=== PATIENT | male | born 1990 | race Caucasian/White ===

== ENCOUNTER 2018-09-19 11:37 | Inpatient (IN) ==
[2018-09-19] MEDS ORDERED: 0.9 % Sodium Chloride 1,000 ML IVC ONE (12:03)
[2018-09-19] MEDS ORDERED: Isovue-370 500 ML BOTTLE IVP ONE (12:04)
[2018-09-19 12:34] LABS: Basophils # 0.1 K/mcL (0.0-0.2); Basophils % 1.1 %; Eosinophils # 0.3 K/mcL (0.0-0.6); Eosinophils % 5.4 %; Hematocrit 43.1 % (37.5-50.1); Hemoglobin 14.2 g/dL (12.9-16.9); Lymphocytes # 2.6 K/mcL (0.6-4.6); Lymphocytes % 48.6 %; Mean Corpuscular HGB Conc 32.9 g/dL (31.6-35.5); Mean Corpuscular Hemoglobin 30.2 pg (28.0-33.3); Mean Corpuscular Volume 91.7 fL (83.0-100.0); Mean Platelet Volume 10.6 fL (9.4-12.4); Monocytes # 0.4 K/mcL (0.0-1.3); Monocytes % 8.2 %; Platelet Count 192 K/mcL (140-400); Segmented Neutrophils % 36.7 %
[2018-09-19 12:45] LABS: INR 1.2
[2018-09-19 12:48] LABS: Activated Partial Thrombo Time 34.5 Seconds (26.0-36.0)
[2018-09-19 12:57] LABS: Alanine Aminotransferase 5 Units/L (7-52); Albumin 3.4 g/dL (3.5-5.7); Albumin/Globulin Ratio 2.4 (1.1-2.2); Alkaline Phosphatase 40 Units/L (34-104); Aspartate Amino Transferase 10 Units/L (13-39); BUN/Creatinine Ratio 14 (6-26); Bilirubin,Total 0.5 mg/dL (0.3-1.0); Blood Urea Nitrogen 9 mg/dL (6-20); Calcium 6.4 mg/dL (8.6-10.3); Carbon Dioxide 21 mEq/L (23-29); Chloride 115 mEq/L (98-107); Globulin 1.4 g/dL (2.4-3.5); Glucose 79 mg/dL (70-105); Magnesium 1.4 mg/dL (1.6-2.6); Osmolality,Calculated 292 (280-300); Potassium 2.6 mEq/L (3.5-5.1); Sodium 142 mEq/L (136-145); Total Protein 4.8 g/dL (6.4-8.9); eGFR For Non-African Americans > 60 (> 60)
[2018-09-19 13:29] LABS: Bilirubin,Urine Negative (Negative); Blood,Urine Negative (Negative); Clarity,Urine Clear (Clear); Color,Urine Yellow (Yellow); Glucose,Urine (UA) Normal (Normal); Ketones,Urine Negative (Negative); Leukocyte Esterase,Urine Negative (Negative); Nitrite,Urine Negative (Negative); Protein,Urine Negative (Neg-Trace); Specific Gravity,Urine 1.016 (1.010-1.025); Urobilinogen,Urine Normal (Normal)
--- NOTE | 2018-09-19 15:22 | Internal Med History&Physical ---
<Kwadwo Escalante S - Last Filed: 09/19/18 16:47> Date of Encounter: 09/19/18 Time of Encounter: 16:07 Internal Medicine - H&P: HPI Chief complaint: blood in my stool Admitted From: Home Plans for Post Hospital Care: Home History of present illness: Mr. De La Paz is a 28 year old male with no significant PMH presents today because of about a 1yr hx of blood in his stool. He usually has blood when he wipes and states that last night he had a "flow of blood" and had significant abdominal pain. He states the pain is cramping and can be sharp in the LLQ/RLQ without radiation. He states that he has no association with food and that he constantly eats, although he does note a 10-15lb weight loss in the last few months. He states that he doesn't have a hx of hemrroids nor does he know if he has a personal hx of UC or chron's. He denies any recent travel outside the country. He did eat some random mushrooms that he found a few days ago. Aside from that, the pt denies any recent changes in his life. He does have a paternal uncle with a hx of UC, although he doesn't know much of the rest of his family history. In the ER he was found to have multiple electrolyte abnormalities. Potassium at 2.6, which was replaced both IV and PO. He was found to have both low calcium and low magnesium, both of which were replaced IV. The patient had a CT scan showing ild prominence of the descending colonic wall which is favored to be due to underdistention though component of mild wall thickening/low-grade colitis not excluded given clinical history. I spoke to GI on the phone and they asked for him to be made NPO at midnight. The pt will be admitted for further workup of potential causes of colitis, including both infectious and inflammatory. Past Med Surg Social Fam HX - Past Medical History Medical history: non-contributory Additional medical history: heart murmur Psychiatric history: no psych history - Past Surgical History Surgical History: non-contributory Additional surgical history: tonsillectomy. wisdom teeth. full teeth extraction - Social History Smoking Status: Current every day smoker Smokeless Tobacco Status: No Alcohol use: occasionally Drug use: none Internal Medicine - H&P: Meds Ibuprofen [Motrin] 600 mg PO Q6HR PRN #20 tab 09/18/17 [Rx] Allergy/AdvReac Type Severity Reaction Status Date / Time aspirin [ASA] Allergy Anaphylaxis Verified 09/18/17 16:02 Bee Pollen Allergy Anaphylaxis Verified 09/18/17 16:02 All Systems PM: A 10-system review of systems was performed and is negative for pertinent findings except as documented above in the HPI. - Constitutional Constitutional: weight loss, no chills, no fever(s) - EENT Eyes: no change in vision Nose, mouth and throat: no bleeding gums - Cardiovascular Cardiovascular ROS IM: no chest pain, no dyspnea, no dyspnea on exertion, no orthopnea, no palpitations - Respiratory Respiratory: no cough, no dyspnea, no hemoptysis, no excessive phlegm production - Gastrointestinal Gastrointestinal: abdominal pain, bloating, change in bowel habits, change in stool character, hematochezia, loose stools, nausea - Genitourinary Genitourinary ROS male: no hematuria - Musculoskeletal Musculoskeletal ROS IM: no arthralgias, no back pain - Integumentary Integumentary IM: no rash, no unusual bruising - Neurological Neurological ROS: no weakness - Psychiatric Psychiatric: anxiety - Endocrine Endocrine IM: fatigue - Hematologic/Lymphatic Hematologic/Lymphatic: no easy bleeding, no easy bruising - Constitutional Vitals: Temp Pulse Resp BP Pulse Ox 98.2 F 77 16 125/90 100 09/19/18 12:30 09/19/18 13:54 09/19/18 12:58 09/19/18 13:54 09/19/18 13:54 General appearance: Present: A&O X 3, underweight Exam: general - aox3, thin appearing male, in NAD heent - NCAT, MMM cardio - rrr, s1s2, cta, no mrg lungs - ctab, not in resp distress, no wheeze/rhonchi/rales abd - ttp with voluntary guarding, no rebound or masses, no peritoneal signs extremities - strength 5/5 UE/LE, moves all extremities equally skin - intact, warm, dry, normal turgor neuro - no FND psych - anxious appearing Internal Med - H&P Results - Labs CBC & Chem 7: 09/19/18 12:14 09/19/18 12:14 Labs: Short CBC 09/19/18 Range/Units 12:14 WBC 5.4 (4.3-11.1) K/mcL Hgb 14.2 (12.9-16.9) g/dL Hct 43.1 (37.5-50.1) % Plt Count 192 (140-400) K/mcL Neutrophils # 2.0 (1.6-8.9) K/mcL BMP 09/19/18 12:14 Sodium 142 Potassium 2.6 L Chloride 115 H Carbon Dioxide 21 L BUN 9 Creatinine 0.64 L Glucose 79 Calcium 6.4 L Liver Function 09/19/18 Range/Units 12:14 Total Bilirubin 0.5 (0.3-1.0) mg/dL AST 10 L (13-39) Units/L ALT 5 L (7-52) Units/L Alkaline Phosphatase 40 (34-104) Units/L Albumin 3.4 L (3.5-5.7) g/dL Urine 09/19/18 Range/Units 12:52 Urine Color Yellow (Yellow) Urine Clarity Clear (Clear) Urine pH 6.0 (5.0-8.0) pH Units Ur Specific [place] 1.016 (1.010-1.025) Urine Protein Negative (Neg-Trace) mg/dL Urine Glucose (UA) Normal (Normal) mg/dL - Impressions ITS Impressions Abdomen/Pelvis CT 09/19/18 12:04 IMPRESSION: 1. Mild prominence of the descending colonic wall which is favored to be due to underdistention though component of mild wall thickening/low-grade colitis not excluded given clinical history. 2. Mild periportal and trace pericholecystic edema which is nonspecific and may relate to hydration status or be reactive in nature. D/ / Kevyn Felder MD / Kevyn Felder MD Interpreting Provider: Kevyn Felder MD - Assessment and Plan (1) Colitis Current Visit: Yes Status: Acute Assessment and plan: Pt with 6 mos hx of bloody diarrhea, cramping abdominal pain - 10-15 lbs weight loss - family hx of IBD CT on admission showed: - Mild prominence of the descending colonic wall which is favored to be due to underdistention though component of mild wall thickening/low-grade colitis not excluded given clinical history. Mild periportal and trace pericholecystic edema which is nonspecific and may relate to hydration status or be reactive in nature. Pt has history suspicious for IBD, with family hx of UC in the maternal uncle - likely infectious vs inflammatory colitis - FOBT (-) Plan: - 100cc/hr 0.9% NS - GI consulted, to see in AM asked for him to be made NPO at midnight CLD (no reds) until midnight will hold off on starting steroids for suspected colitis flare until GI evaluates - tylonal prn pain q6hr - continue to monitor electrolytes as detailed below - CBC, BMP with AM labs; H&H at 2100 - stool panel pending - FEN: NPO at midnight, ok to have CLD until 1200 nutrition consulted as detailed below - dispo: GI workup, likely to d/c home after inpatient evaluation (2) Hypocalcemia Current Visit: Yes Status: Acute Assessment and plan: Calcium 6.4, does not correct to an acceptable level w/ albumin correction. Being replaced with 2g calcium glucuronate. Check ionized in AM. (3) Protein malnutrition Current Visit: Yes Status: Acute Assessment and plan: BMI 19.5. Nutrition consulted. (4) Hypokalemia Current Visit: Yes Status: Acute Assessment and plan: Potassium 2.4 on admission. 10 mEq x 2 IV given in the ER. 40 mEq given PO. Recheck at 2100 and in AM. (5) Hypomagnesemia Current Visit: Yes Status: Acute Assessment and plan: Magnesium 1.4, replaced. Re-check magnesium in AM. (6) DVT prophylaxis Current Visit: Yes Status: Acute Assessment and plan: scd - Summary of Assessment and Plan Summary of Assessment and Plan: scd - Time Spent With Patient Total time spent is greater than 50% in coordination of care (as documented) at patient's floor/unit and/or counseling patient: 25 - 35 minutes <Sierra Beck - Last Filed: 09/19/18 18:06> Date of Encounter: 09/19/18 Internal Medicine - H&P: HPI History of present illness: Mr. De La Paz is a 28 year old male All Systems PM: A 10-system review of systems was performed and is negative for pertinent findings except as documented above in the HPI. - Constitutional Vitals: Temp Pulse Resp BP Pulse Ox 98.2 F 76 14 128/94 99 09/19/18 12:30 09/19/18 16:27 09/19/18 16:27 09/19/18 16:27 09/19/18 16:27 Internal Med - H&P Results - Labs CBC & Chem 7: 09/19/18 12:14 09/19/18 12:14 Labs: Short CBC 09/19/18 Range/Units 12:14 WBC 5.4 (4.3-11.1) K/mcL Hgb 14.2 (12.9-16.9) g/dL Hct 43.1 (37.5-50.1) % Plt Count 192 (140-400) K/mcL Neutrophils # 2.0 (1.6-8.9) K/mcL BMP 09/19/18 12:14 Sodium 142 Potassium 2.6 L Chloride 115 H Carbon Dioxide 21 L BUN 9 Creatinine 0.64 L Glucose 79 Calcium 6.4 L Liver Function 09/19/18 Range/Units 12:14 Total Bilirubin 0.5 (0.3-1.0) mg/dL AST 10 L (13-39) Units/L ALT 5 L (7-52) Units/L Alkaline Phosphatase 40 (34-104) Units/L Albumin 3.4 L (3.5-5.7) g/dL Urine 09/19/18 Range/Units 12:52 Urine Color Yellow (Yellow) Urine Clarity Clear (Clear) Urine pH 6.0 (5.0-8.0) pH Units Ur Specific [place] 1.016 (1.010-1.025) Urine Protein Negative (Neg-Trace) mg/dL Urine Glucose (UA) Normal (Normal) mg/dL - Impressions ITS Impressions Abdomen/Pelvis CT 09/19/18 12:04 IMPRESSION: 1. Mild prominence of the descending colonic wall which is favored to be due to underdistention though component of mild wall thickening/low-grade colitis not excluded given clinical history. 2. Mild periportal and trace pericholecystic edema which is nonspecific and may relate to hydration status or be reactive in nature. D/ / Kevyn Felder MD / Kevyn Felder MD Interpreting Provider: Kevyn Felder MD - Time Spent With Patient Total time spent is greater than 50% in coordination of care (as documented) at patient's floor/unit and/or counseling patient: - Attending Attestation I examined this patient and my medical decision-making was reviewed with the Resident Physician Dr Escalante. I agree with the documented findings, disposition and treatment plan as described except to the extent set forth below. Mr De La Paz is being admitted for possible colitis and electrolyte abnormalities requiring IV supplementation. awake, mother and father at bedside, he admits to cramping bl lq abdominal pain and rectal bleeding intermittently over about one year. Appears to come and flare then last a few days and improve. cramping squeezing lower quadrant pain. no pain elsewhere. no nausea or emesis and very good appetite. bms are soft and about 1-2 daily. at times he has brigth red blood dripping in toilet eater or bright red blood when he wipes. other times brown stool coated in red blood. y esterday had kerry flowing blood with bm and this has never happened before uncle with UC, no colon cancer in family he is aware of picked then ate wild mushrooms two days ago. OTC whey protein and gelatin. no herbs. smoked a vape pen with "all natural marijuana oil" in it about two days ago. gen- alert, awake,appears stated age, thin eyes- pupils equal round , no scleral icterus, no conjunctival pallor cv- reg rate and rhythm, normal s1,s2, no murmurs appreciated lungs- ctabl, no wheezing, rhonchi or crackles abd- soft, diffusely tender , no rebound, he guards in anticipation of palpation, non distended, + bs skin- warm, dry, no pallor or jaundice neuro- AAOx3 Possible mild descending colon colitis- suspect less likley infectious and more likely inflammatory given duration of sxs about one year CT scan reviewed- likely mild prominence of wall of descending colon is underdistension, however low grade colitis cannot be excluded He has no fever or leukocytosis -IVFs, clear liquid diet/no red, will consult gi for possible scope, check stool culture to definitely rule out infectious etiology, sxs are not consistent with c diff, no empiric vanc required, given no fevers, leukocytosis will hold on empiric abx unless clinical picutre changes Rectal bleeding- IBD vs hemorrhoids Hgb normal, hemodynamically stable, CT as above, occult stool negative -monitor bms for bleeding and cont to follow hgb -scds for vte ppx Hypokalemia with potassium 2.6- 20 meq IV Kcl in ED, further PO repletion and recheck K level later tonight for further evening repletion Hypomagnesemia 1.4- IV mag and cont to follow level Hypocalcemia 6.4, corrected to 6.9- check ionized ca, give IV ca gluconate further diagnoses and plan as noted by resident
--- NOTE | 2018-09-19 15:28 | Emergency Department Note ---
Disposition Clinical Impression: Colitis, Hypokalemia, Hypomagnesemia Disposition: Admitted As Inpatient Condition: Good Referrals: NONE,PCP [Primary Care Provider] - Time of Disposition: 15:29 General Adult HPI - General Chief complaint: ED GI Bleed Stated complaint: Rectal Bleeding/ Abd Pain Time Seen by Provider: 09/19/18 11:53 Source: patient Limitations: no limitations - History of Present Illness HPI Narrative: 28-year-old gentleman who presents to emergency department with chief complaint of abdominal pain and rectal bleeding. Patient reports that he has a cramping- like abdominal pain primarily in the lower quadrants. Patient has a states he has a family history for colitis and patient states that he feels weak and run down with this. Patient states pain is worse with movement and improves with rest. Patient states that he had bright red blood whenever he went to the bathroom. Pain Scale: 8 - Related Data Previous Rx's Medication Instructions Recorded Ibuprofen [Motrin] 600 mg PO Q6HR PRN #20 tab 09/18/17 Allergies Allergy/AdvReac Type Severity Reaction Status Date / Time aspirin [ASA] Allergy Anaphylaxis Verified 09/18/17 16:02 Bee Pollen Allergy Anaphylaxis Verified 09/18/17 16:02 All systems ED: reviewed and negative except as stated. Past Medical History - Past Medical History Attestation: Yes The following information was validated with the patient. Medical history: Reports: non-contributory Surgical history: Reports: non-contributory Psychiatric history: Reports: no psych history - Social History Smoking Status: Current every day smoker Smokeless Tobacco Status: No Alcohol use: Reports: occasionally Drug use: Reports: none Physical Exam General: Conversant and pleasant interactive and nontoxic. Head: Normocephalic/atraumatic Eyes:PERRLA, EOMI, no conjunctivitis Nares: Without d/c. Ears: No erythema or d/c noted. Oralpharnyx: P&MMM noted, Neck: Supple, no JVD or APPLIQUE SEWER noted. Cardovascular: regular rate and rhythm without murmur, brisk capillary refill, no peripheral edema. Lungs: Clear to ascultation bilaterally, non-labored Abd: Soft diffuse tenderness to palpation, Non Distended, no guarding, no rebound. : Stool is normal color there is no gross blood in the rectal vault Extremities: moves all extremities equally Neuro: AOx3, no obvious gross neuro deficit Psych: Normal Affect Derm: No rash noted - General Limitations: no limitations Course Vital Signs Temperature 98.2 F 09/19/18 11:42 Pulse Rate 64 09/19/18 11:42 Respiratory Rate 18 09/19/18 11:42 Blood Pressure 131/88 09/19/18 11:42 O2 Sat by Pulse Oximetry 100 09/19/18 11:42 Temperature 98.2 F 09/19/18 12:30 Pulse Rate 77 09/19/18 13:54 Respiratory Rate 16 09/19/18 12:58 Blood Pressure 125/90 09/19/18 13:54 O2 Sat by Pulse Oximetry 100 09/19/18 13:54 Oxygen Delivery Oxygen Delivery Room Air Medical Decision Making - Lab Data Result diagrams: 09/19/18 12:14 09/19/18 12:14 Lab Results 09/19/18 09/19/18 09/19/18 Range/Units 12:03 12:14 12:14 WBC 5.4 (4.3-11.1) K/mcL RBC 4.70 (4.19-5.50) M/mcL Hgb 14.2 (12.9-16.9) g/dL Hct 43.1 (37.5-50.1) % MCV 91.7 (83.0-100.0) fL MCH 30.2 (28.0-33.3) pg MCHC 32.9 (31.6-35.5) g/dL RDW 13.0 (11.5-14.5) % Plt Count 192 (140-400) K/mcL MPV 10.6 (9.4-12.4) fL Immature Gran % 0.0 (0-4) % Seg Neutrophils % 36.7 % Lymphocytes % 48.6 % Monocytes % 8.2 % Eosinophils % 5.4 % Basophils % 1.1 % Neutrophils # 2.0 (1.6-8.9) K/mcL Lymphocytes # 2.6 (0.6-4.6) K/mcL Monocytes # 0.4 (0.0-1.3) K/mcL Eosinophils # 0.3 (0.0-0.6) K/mcL Basophils # 0.1 (0.0-0.2) K/mcL PT 13.0 H (9.4-12.1) Seconds INR 1.2 APTT 34.5 (26.0-36.0) Seconds Sodium (136-145) mEq/L Potassium (3.5-5.1) mEq/L Chloride (98-107) mEq/L Carbon Dioxide (23-29) mEq/L BUN (6-20) mg/dL Creatinine (0.70-1.30) mg/dL Est GFR ( Amer) (> 60) Est GFR (Non-Af Amer) (> 60) BUN/Creatinine Ratio (6-26) Glucose (70-105) mg/dL Calculated Osmolality (280-300) Lactic Acid (0.5-2.2) mmol/L Calcium (8.6-10.3) mg/dL Magnesium (1.6-2.6) mg/dL Total Bilirubin (0.3-1.0) mg/dL AST (13-39) Units/L ALT (7-52) Units/L Alkaline Phosphatase (34-104) Units/L Serum Total Protein (6.4-8.9) g/dL Albumin (3.5-5.7) g/dL Globulin (2.4-3.5) g/dL Albumin/Globulin Ratio (1.1-2.2) Urine Color (Yellow) Urine Clarity (Clear) Urine pH (5.0-8.0) pH Units Ur Specific [place] (1.010-1.025) Urine Protein (Neg-Trace) mg/dL Urine Glucose (UA) (Normal) mg/dL Urine Ketones (Negative) mg/dL Urine Blood (Negative) Urine Nitrite (Negative) Urine Bilirubin (Negative) Urine Urobilinogen (Normal) mg/dL Ur Leukocyte Esterase (Negative) Ur Culture Indicated? (NO) Stool Occult Bld Scrn Negative (Negative) Blood Type Antibody Screen 09/19/18 09/19/18 09/19/18 Range/Units 12:14 12:14 12:14 WBC (4.3-11.1) K/mcL RBC (4.19-5.50) M/mcL Hgb (12.9-16.9) g/dL Hct (37.5-50.1) % MCV (83.0-100.0) fL MCH (28.0-33.3) pg MCHC (31.6-35.5) g/dL RDW (11.5-14.5) % Plt Count (140-400) K/mcL MPV (9.4-12.4) fL Immature Gran % (0-4) % Seg Neutrophils % % Lymphocytes % % Monocytes % % Eosinophils % % Basophils % % Neutrophils # (1.6-8.9) K/mcL Lymphocytes # (0.6-4.6) K/mcL Monocytes # (0.0-1.3) K/mcL Eosinophils # (0.0-0.6) K/mcL Basophils # (0.0-0.2) K/mcL PT (9.4-12.1) Seconds INR APTT (26.0-36.0) Seconds Sodium 142 (136-145) mEq/L Potassium 2.6 L (3.5-5.1) mEq/L Chloride 115 H (98-107) mEq/L Carbon Dioxide 21 L (23-29) mEq/L BUN 9 (6-20) mg/dL Creatinine 0.64 L (0.70-1.30) mg/dL Est GFR ( Amer) > 60 (> 60) Est GFR (Non-Af Amer) > 60 (> 60) BUN/Creatinine Ratio 14 (6-26) Glucose 79 (70-105) mg/dL Calculated Osmolality 292 (280-300) Lactic Acid 0.9 (0.5-2.2) mmol/L Calcium 6.4 L (8.6-10.3) mg/dL Magnesium 1.4 L (1.6-2.6) mg/dL Total Bilirubin 0.5 (0.3-1.0) mg/dL AST 10 L (13-39) Units/L ALT 5 L (7-52) Units/L Alkaline Phosphatase 40 (34-104) Units/L Serum Total Protein 4.8 L (6.4-8.9) g/dL Albumin 3.4 L (3.5-5.7) g/dL Globulin 1.4 L (2.4-3.5) g/dL Albumin/Globulin Ratio 2.4 H (1.1-2.2) Urine Color (Yellow) Urine Clarity (Clear) Urine pH (5.0-8.0) pH Units Ur Specific [place] (1.010-1.025) Urine Protein (Neg-Trace) mg/dL Urine Glucose (UA) (Normal) mg/dL Urine Ketones (Negative) mg/dL Urine Blood (Negative) Urine Nitrite (Negative) Urine Bilirubin (Negative) Urine Urobilinogen (Normal) mg/dL Ur Leukocyte Esterase (Negative) Ur Culture Indicated? (NO) Stool Occult Bld Scrn (Negative) Blood Type A POSITIVE Antibody Screen NEGATIVE 09/19/18 Range/Units 12:52 WBC (4.3-11.1) K/mcL RBC (4.19-5.50) M/mcL Hgb (12.9-16.9) g/dL Hct (37.5-50.1) % MCV (83.0-100.0) fL MCH (28.0-33.3) pg MCHC (31.6-35.5) g/dL RDW (11.5-14.5) % Plt Count (140-400) K/mcL MPV (9.4-12.4) fL Immature Gran % (0-4) % Seg Neutrophils % % Lymphocytes % % Monocytes % % Eosinophils % % Basophils % % Neutrophils # (1.6-8.9) K/mcL Lymphocytes # (0.6-4.6) K/mcL Monocytes # (0.0-1.3) K/mcL Eosinophils # (0.0-0.6) K/mcL Basophils # (0.0-0.2) K/mcL PT (9.4-12.1) Seconds INR APTT (26.0-36.0) Seconds Sodium (136-145) mEq/L Potassium (3.5-5.1) mEq/L Chloride (98-107) mEq/L Carbon Dioxide (23-29) mEq/L BUN (6-20) mg/dL Creatinine (0.70-1.30) mg/dL Est GFR ( Amer) (> 60) Est GFR (Non-Af Amer) (> 60) BUN/Creatinine Ratio (6-26) Glucose (70-105) mg/dL Calculated Osmolality (280-300) Lactic Acid (0.5-2.2) mmol/L Calcium (8.6-10.3) mg/dL Magnesium (1.6-2.6) mg/dL Total Bilirubin (0.3-1.0) mg/dL AST (13-39) Units/L ALT (7-52) Units/L Alkaline Phosphatase (34-104) Units/L Serum Total Protein (6.4-8.9) g/dL Albumin (3.5-5.7) g/dL Globulin (2.4-3.5) g/dL Albumin/Globulin Ratio (1.1-2.2) Urine Color Yellow (Yellow) Urine Clarity Clear (Clear) Urine pH 6.0 (5.0-8.0) pH Units Ur Specific [place] 1.016 (1.010-1.025) Urine Protein Negative (Neg-Trace) mg/dL Urine Glucose (UA) Normal (Normal) mg/dL Urine Ketones Negative (Negative) mg/dL Urine Blood Negative (Negative) Urine Nitrite Negative (Negative) Urine Bilirubin Negative (Negative) Urine Urobilinogen Normal (Normal) mg/dL Ur Leukocyte Esterase Negative (Negative) Ur Culture Indicated? NO (NO) Stool Occult Bld Scrn (Negative) Blood Type Antibody Screen
[2018-09-19] MEDS ORDERED: Naloxone 0.4 MG/ML INJ IVP PRN (15:56)
[2018-09-19] MEDS ORDERED: Ondansetron 4 MG/2 ML VIAL IVP PRN (15:56)
[2018-09-19] MEDS ORDERED: Potassium Chloride Elixir 20 MEQ/15 ML UDC PO ONE (15:59)
[2018-09-19] MEDS ORDERED: Calcium Gluconate 2,000 MG in 0.9 % Sodium Chloride 100 ML IVPB ONE (16:00)
[2018-09-19] MEDS ORDERED: Acetaminophen 325 MG TABLET PO PRN (16:30)
[2018-09-19] MEDS ORDERED: SODIUM CHLORIDE/NAHCO3/KCL/PEG 4,000 ML SOLN.RECON PO ONE (17:00)
[2018-09-19] MEDS ORDERED: *HR* Heparin 5,000 UNIT/ML VIAL SQ SCH (18:00)
[2018-09-19] MEDS: 0.9 % Sodium Chloride 1,000 ML IVC SCH (20:50)
[2018-09-19 20:54] LABS: Hematocrit 43.1 % (37.5-50.1); Hemoglobin 14.2 g/dL (12.9-16.9)
[2018-09-20 05:01] LABS: Hemoglobin 13.7 g/dL (12.9-16.9); Mean Corpuscular HGB Conc 32.6 g/dL (31.6-35.5); Mean Corpuscular Hemoglobin 29.7 pg (28.0-33.3); Mean Corpuscular Volume 91.1 fL (83.0-100.0); Mean Platelet Volume 10.8 fL (9.4-12.4); Platelet Count 183 K/mcL (140-400); Red Blood Count 4.61 M/mcL (4.19-5.50); Red Cell Distribution Width 12.9 % (11.5-14.5)
[2018-09-20 05:09] LABS: VBG Ionized Calcium 1.22 mmol/L (1.15-1.35)
[2018-09-20 05:17] LABS: BUN/Creatinine Ratio 9 (6-26); Blood Urea Nitrogen 8 mg/dL (6-20); Carbon Dioxide 24 mEq/L (23-29); Chloride 109 mEq/L (98-107); Glucose 92 mg/dL (70-105); Magnesium 2.3 mg/dL (1.6-2.6); Osmolality,Calculated 290 (280-300); Phosphorous 3.7 mg/dL (2.7-4.5); Potassium 3.9 mEq/L (3.5-5.1); Sodium 141 mEq/L (136-145); eGFR For Non-African Americans > 60 (> 60)
[2018-09-20] MEDS: 0.9 % Sodium Chloride 1,000 ML IVC SCH (06:00)
[2018-09-20] MEDS ORDERED: Propofol 500 MG/50 ML INFUS..BTL ONE (07:46)
--- NOTE | 2018-09-20 08:03 | Internal Med Progress Note ---
Hospitalist Progress Note - Encounter Date of Encounter: 09/20/18 - Exam Vitals: Temp Pulse Resp BP Pulse Ox 98.3 F 63 20 106/66 98 09/20/18 06:59 09/20/18 06:59 09/20/18 06:59 09/20/18 06:59 09/20/18 06:59 - Assessment and Plan (1) Colitis Current Visit: Yes Status: Acute (2) Hypocalcemia Current Visit: Yes Status: Acute (3) Protein malnutrition Current Visit: Yes Status: Acute (4) Hypokalemia Current Visit: Yes Status: Acute (5) Hypomagnesemia Current Visit: Yes Status: Acute (6) DVT prophylaxis Current Visit: Yes Status: Acute - Time Spent with Patient Total time spent is greater than 50% in coordination of care (as documented) at patient's floor/unit and/or counseling patient: Internal Medicine: Result - Labs CBC & Chem 7: 09/20/18 03:48 09/20/18 03:48 Labs: Short CBC 09/19/18 09/19/18 09/20/18 Range/Units 12:14 20:46 03:48 WBC 5.4 6.4 (4.3-11.1) K/mcL Hgb 14.2 14.2 13.7 (12.9-16.9) g/dL Hct 43.1 43.1 42.0 (37.5-50.1) % Plt Count 192 183 (140-400) K/mcL Neutrophils # 2.0 (1.6-8.9) K/mcL BMP 09/19/18 09/19/18 09/20/18 12:14 20:46 03:48 Sodium 142 141 Potassium 2.6 L 4.6 D 3.9 Chloride 115 H 109 H Carbon Dioxide 21 L 24 BUN 9 8 Creatinine 0.64 L 0.87 Glucose 79 92 Calcium 6.4 L 9.0 Liver Function 09/19/18 Range/Units 12:14 Total Bilirubin 0.5 (0.3-1.0) mg/dL AST 10 L (13-39) Units/L ALT 5 L (7-52) Units/L Alkaline Phosphatase 40 (34-104) Units/L Albumin 3.4 L (3.5-5.7) g/dL Urine 09/19/18 Range/Units 12:52 Urine Color Yellow (Yellow) Urine Clarity Clear (Clear) Urine pH 6.0 (5.0-8.0) pH Units Ur Specific [place] 1.016 (1.010-1.025) Urine Protein Negative (Neg-Trace) mg/dL Urine Glucose (UA) Normal (Normal) mg/dL - ABG Interpretation ABG results: PT/INR, D-dimer PT 13.0 Seconds (9.4-12.1) H 09/19/18 12:14 - Impressions Impressions Abdomen/Pelvis CT 09/19/18 12:04 IMPRESSION: 1. Mild prominence of the descending colonic wall which is favored to be due to underdistention though component of mild wall thickening/low-grade colitis not excluded given clinical history. 2. Mild periportal and trace pericholecystic edema which is nonspecific and may relate to hydration status or be reactive in nature. D/ / Kevyn Felder MD / Kevyn Felder MD Interpreting Provider: Kevyn Felder MD Consult Discharge Plan - Plan Referrals: NONE,PCP [Primary Care Provider] -
--- NOTE | 2018-09-20 08:39 | Anesthesia Evaluation PreOp ---
Date of Encounter: 09/20/18 Time of Encounter: 08:37 - Past History Planned Operation: COLONOSCOPY Cardiac History: Denies any Significant Hx Pulmonary History: Smoker Other Medical History: Other (COLITIS, RECTAL BLEDING, HYPOKALEMIS, HYPOMAGNESEMIA, HYPOCALCEMIA ON ADMISSION) Alcohol Use: occasionally Drug use: marijuana Medications and Allergies Ibuprofen [Motrin] 600 mg PO Q6HR PRN #20 tab 09/18/17 [Rx] Allergy/AdvReac Type Severity Reaction Status Date / Time aspirin [ASA] Allergy Anaphylaxis Verified 09/18/17 16:02 Bee Pollen Allergy Anaphylaxis Verified 09/18/17 16:02 - Meds/Allergy Pre-op Review Medications Reviewed: Yes Allergies Reviewed: Yes Anesthesia Results - Labs 09/20/18 03:48 09/20/18 03:48 Laboratory Tests 09/20/18 03:48 Potassium 3.9 Calcium 9.0 Magnesium 2.3 Anesthesia Exam Vital Signs/O2 Sat, Most Current Temp Pulse Resp BP Pulse Ox 98.3 F 61 18 120/72 98 09/20/18 08:18 09/20/18 08:18 09/20/18 08:18 09/20/18 08:18 09/20/18 08:18 Weight: 64 KG - BMI 20 NPO (# of Hours): 8 - HEENT Mallampati: II Teeth: Edentulous - Cardiac Rhythm: Regular - Pulmonary Breath Sounds: bilateral Clear Anesthesia Assess/Plan ASA Score: 3 Anesthetic Plan: MAC Monitoring Plan: Standard Monitors Recovery Plan: Other
--- NOTE | 2018-09-20 08:50 | Gastroenterology Consult Note ---
Date of Encounter: 09/20/18 Time of Encounter: 08:00 - Assessment and plan (1) Colitis Current Visit: Yes Status: Acute Assessment and plan: Pt with On and off abd pain with some blood in stool. CT with ??? colitis. Rec: Colon to r/o IBD - Time Spent With Patient Total time spent is greater than 50% in coordination of care (as documented) at patient's floor/unit and/or counseling patient: GI History of Present Illness - Data of Consult Requesting Physician: Sierra Beck - Consult Narrative Reason for consult: Rectal bleed History of present illness: 28 year old male with no significant PMH presents today because of about a 1yr hx of blood in his stool. He usually has blood when he wipes and states that last night he had a "flow of blood" and had significant abdominal pain. He states the pain is cramping and can be sharp in the LLQ/RLQ without radiation. He states that he has no association with food and that he constantly eats, although he does note a 10-15lb weight loss in the last few months. He states that he doesn't have a hx of hemrroids nor does he know if he has a personal hx of UC or chron's. He denies any recent travel outside the country. He did eat some random mushrooms that he found a few days ago. Aside from that, the pt denies any recent changes in his life. He does have a paternal uncle with a hx of UC, although he doesn't know much of the rest of his family history. In the ER he was found to have multiple electrolyte abnormalities. Potassium at 2.6, which was replaced both IV and PO. He was found to have both low calcium and low magnesium, both of which were replaced IV. The patient had a CT scan showing ild prominence of the descending colonic wall which is favored to be due to underdistention. Currently denies rectal bleed.some abd pain Past Med Surg Social Fam HX - Past Medical History Medical history: non-contributory Additional medical history: heart murmur Psychiatric history: no psych history - Past Surgical History Surgical History: other Additional surgical history: tonsillectomy. wisdom teeth. full teeth extraction - Social History Smoking Status: Current every day smoker Smokeless Tobacco Status: No Alcohol use: occasionally Drug use: marijuana Review of Systems: GI: as per [facility]: denies fever, has some chills EYES: denies yellow discoloration ENT: denies pain with swallowing or difficulty swallowing CARDIO: denies chest pain, palpitations RESP: No Shortness of breath with exertion : denies change in color of urine NEURO: denies any weakness HEME: Denies any bruising MS: denies joint pain, joint swelling or back pain. DERM: denies rash or itching PSYCH: Denies history of anxiety or depression - Constitutional Vitals: Temp Pulse Resp BP Pulse Ox 98.3 F 61 18 120/72 98 09/20/18 08:18 09/20/18 08:18 09/20/18 08:18 09/20/18 08:18 09/20/18 08:18 Exam: CONSTITUTIONAL:alert, no acute distress.No teeth HEAD:normocephalic.EYES:no jaundice.NECK:no obvious swelling.HEART:regular rate and rhythm, no murmurs.LUNGS:bilateral good air entry.ABDOMEN:non distended, soft, non tander, no masses pulpable, no organomegaly.RECTAL EXAM:Deferred.EXTREMITIES:no clubbing, cyanosis or edema.SKIN:no stigmata of chronic liver disease.NEUROLOGIC:no obvious focal defect.Multiple skin t atttos Results - Labs CBC & Chem 7: 09/20/18 03:48 09/20/18 03:48 Labs: Last Result 09/20/18 03:48 Calcium 9.0 Entire Visit 09/19/18 09/20/18 20:46 03:48 Hgb 14.2 13.7 Hct 43.1 42.0 - ABG ABG results: PT/INR, D-dimer PT 13.0 Seconds (9.4-12.1) H 09/19/18 12:14 - Impressions Impressions Abdomen/Pelvis CT 09/19/18 12:04 IMPRESSION: 1. Mild prominence of the descending colonic wall which is favored to be due to underdistention though component of mild wall thickening/low-grade colitis not excluded given clinical history. 2. Mild periportal and trace pericholecystic edema which is nonspecific and may relate to hydration status or be reactive in nature. D/ / Kevyn Felder MD / Kevyn Felder MD Interpreting Provider: Kevyn Felder MD Consult Discharge Plan - Plan Referrals: NONE,PCP [Primary Care Provider] -
--- NOTE | 2018-09-20 09:49 | Discharge Summary ---
<Sierra Beck - Last Filed: 09/20/18 12:05> Orders not resulted at time of discharge: Pending orders 09/20/18 09:07 Surgical Pathology [PTH] Routine Date of Encounter: 09/20/18 Hospital course: Mr. De La Paz is a 28 year old male - Time Spent with Patient Total time spent providing and/or coordinating discharge services: Time spent: Greater than 30 minutes (45 min) - Discharge Medications Prescriptions: Continued Folic Acid/Multivit-Min/Lutein [Adult Multivitamin Gummies] 1 tab PO DAILY Home Medications: Folic Acid/Multivit-Min/Lutein [Adult Multivitamin Gummies] 1 tab PO DAILY 09/20/18 [History] Allergies/Adverse Reactions: Allergy/AdvReac Type Severity Reaction Status Date / Time aspirin [ASA] Allergy Anaphylaxis Verified 09/20/18 10:07 Bee Pollen Allergy Anaphylaxis Verified 09/18/17 16:02 Date of admission: 09/19/18 17:37 Primary care physician: PCP NONE Consults: 09/19/18 15:54 Consult to Gastroenterology [CONS] Stat Consulting Provider: [facility] Reason for Consult: ?ibd Call Completed: No 09/19/18 16:05 Consult to Nutrition [CONS] Routine Comment: Consulting Provider: NUTRITION Reason for Dietary Consult: PO Supplementation - Constitutional Vitals: Temp Pulse Resp BP Pulse Ox 97.6 F 71 14 106/79 100 09/20/18 10:00 09/20/18 10:00 09/20/18 10:00 09/20/18 10:00 09/20/18 10:00 - Patient Status Disposition: Home, Self-Care Condition: Good - Discharge Instructions Follow Up With: Joey Toro MD [Partnered Physician] - Velasquez Arriola DO [Partnered Physician] - 09/25/18 Additional Instructions: He is advsied to stop taking OTC supplements that are not FDA approved. Also advised the pt to not eat wild mushrooms or to use vaping supplies. - Attending Attestation I examined this patient and my medical decision-making was reviewed with the Resident Physician Dr Escalante. I agree with the documented findings, disposition and treatment plan as described except to the extent set forth below. Mr De La Paz was admitted for possible colitis and electrolyte abnormalities requiring IV supplementation. awake, back from colonscopy. feeling well. had no blood with bowel prep at all. cscope no colitis and bxs taken for ileal nodular mucosa and pt aware he will need to fu with gi for bx results. gi fed him breakfast and he tolerated regular diet without abd pain, n/v/d. He will eat lunch and if no issues dc to home. he is very eager for dc. discussed dc plan and he has no questions. gen- alert, awake,appears stated age cv- reg rate and rhythm, normal s1,s2, no murmurs appreciated lungs- ctabl, normal resp effort on room air abd- soft, non tender, no rebound, no guarding, non distended, + bs neuro- AAOx3 Possible mild descending colon colitis ruled out with cscope 09/20/18 He has no fever or leukocytosis Stool panel ordered on admit and never collected during bowel prep, given no colitis, fever or wbc do no suspect bacterial infection -tolerating regular diet -bxs taken for nodular irregularities of wall and will fu with gi outpt for results Rectal bleeding-?possible hemorrhoids, no bleeding this admission, including with bowel prep, cscope did not visualize hemorrhoids Hgb normal, hemodynamically stable, occult stool negative -fu with gi outpt Hypokalemia resolved Hypomagnesemia resolved Hypocalcemia resolved -pt uses a lot of non FDA appeared nutritional herbs/supplements/vapes oils- encouraged to stop doing so as this may cause electrolyte abnormalities -fu with newly established pcp further diagnoses and plan as noted by resident time spent on discharge 45 min <Kwadwo Escalante S - Last Filed: 09/20/18 12:57> - NOTES TO OUTPATIENT PROVIDER Notes to Outpatient Provider: Follow up with PCP in 1 week. Await bx results from colonoscopy. F/U with Dr Toro as an outpatient. Advised the pt to stop taking OTC supplements that are not approved, advised him to stop vaping and advised him to quit eating wild mushrooms. Orders not resulted at time of discharge: Pending orders 09/19/18 15:54 GI Panel,Stool [MOLMIC] Stat 09/20/18 09:07 Surgical Pathology [PTH] Routine Date of Encounter: 09/20/18 Time of Encounter: 09:46 - Discharge Diagnosis (1) Colitis Priority: Primary Status: Acute (2) Hypocalcemia Priority: Secondary Status: Acute (3) Protein malnutrition Priority: Secondary Status: Acute (4) Hypokalemia Priority: Secondary Status: Resolved (5) Hypomagnesemia Priority: Secondary Status: Resolved (6) DVT prophylaxis Priority: Secondary Status: Acute Hospital course: Mr. De La Paz is a 28 year old male with no significant PMH presents today because of about a 1yr hx of blood in his stool. He usually has blood when he wipes and states that last night he had a "flow of blood" and had significant abdominal pain. He states the pain is cramping and can be sharp in the LLQ/RLQ without radiation. He states that he has no association with food and that he constantly eats, although he does note a 10-15lb weight loss in the last few months. He states that he doesn't have a hx of hemrroids nor does he know if he has a personal hx of UC or chron's. He denies any recent travel outside the country. He did eat some random mushrooms that he found a few days ago. Aside from that, the pt denies any recent changes in his life. He does have a paternal uncle with a hx of UC, although he doesn't know much of the rest of his family history. In the ER he was found to have multiple electrolyte abnormalities. Potassium at 2.6, which was replaced both IV and PO. He was found to have both low calcium and low magnesium, both of which were replaced IV. The patient had a CT scan showing ild prominence of the descending colonic wall which is favored to be due to underdistention though component of mild wall thickening/low-grade colitis not excluded given clinical history. I spoke to GI on the phone and they asked for him to be made NPO at midnight to plan for scope this morning. All electrolyte abnormalities were corrected and with morning labs, he had no acute abnormalities and had a stable hemoglobin as well. Patient had colonoscopy with biopsy this morning in the endoscopy suite with no acute findings. Colonoscpy showed that the entire colon is normal with a nodular ilieal mucosa which was biopsies. The distal rectum and anal verge are nomral on retroflexion view. Biopsies were taken. Pt returned to his room without any complication. He is to be discharged this afternoon and will have follow up appt with GI as an outpatient to get biopsy results. Also informed to f/u with PCP in 1 week. He is advsied to stop taking OTC supplements that are not FDA approved. Also advised the pt to not eat wild mushrooms or to use vaping supplies. He is medically stable for discharge. Discharge discussed with: patient, family, nurse Time spent discussing smoking cessation with patient: 3 to 10 minutes - Time Spent with Patient Total time spent providing and/or coordinating discharge services: Time spent: Greater than 30 minutes Date of admission: 09/19/18 17:37 Primary care physician: PCP NONE Consults: 09/19/18 15:54 Consult to Gastroenterology [CONS] Stat Consulting Provider: [facility] [place] Reason for Consult: ?ibd Call Completed: No 09/19/18 16:05 Consult to Nutrition [CONS] Routine Comment: Consulting Provider: NUTRITION Reason for Dietary Consult: PO Supplementation Discharging clinician: Kwadwo Escalante Anticipated date of discharge: 09/20/18 - Constitutional Vitals: Temp Pulse Resp BP Pulse Ox 98.3 F 61 18 120/72 98 09/20/18 08:18 09/20/18 08:18 09/20/18 08:18 09/20/18 08:18 09/20/18 08:18 General appearance: Present: A&O X 3, underweight Exam: general - aox3, thin appearing male, in NAD heent - NCAT, MMM cardio - rrr, s1s2, cta, no mrg lungs - ctab, not in resp distress, no wheeze/rhonchi/rales abd - ttp with voluntary guarding has improved, no rebound or masses, no peritoneal signs extremities - strength 5/5 UE/LE, moves all extremities equally skin - intact, warm, dry, normal turgor neuro - no FND psych - normal affect/mood - Patient Status Functional capacity at discharge: independent ambulation Overall status at discharge: patient is progressing back to baseline - Diet and Activity Activity: increase activity as tolerated Diet: advance to your usual diet, regular diet
[2018-09-20 10:38] VITALS: BP 106/79
== END 2018-09-20 13:45 | disposition home or self-care (01) | DRG 392 ==
LOC: SUATTDRO → EMEROOARM 11:37 → 3ANU 17:37 → SUATTDRO 17:37 → 3BNU 17:54
PROVIDERS: ADMIT Internal Medicine; ATTEND Internal Medicine
PROC: ENDOCBX (2018-09-20 18:40)